=== PATIENT | female | born 1965 | race Caucasian/White ===

== ENCOUNTER → 2016-06-05 | Outpatient (CLI) | payer MEDICARE, MEDICAID ==
--- NOTE | 2016-06-05 15:28 | RADRPT ---
Vent Rate: 82 bpm RR Interval: 0 msec NC Interval: 154 msec QRS Duration: 96 msec QT Interval: 390 msec QTC Interval: 455 msec P-R-T [place]: 33 - 16 - -4 degrees Normal sinus rhythm Nonspecific T wave abnormality Abnormal ECG Electronically Signed By: Eddie Amaya [id number]
== END | disposition home or self-care (01) ==
LOC: EKG 13:50
PROVIDERS: ATTEND Internal Medicine
DX: R07.89 Other chest pain (principal)
CPT/HCPCS: 93005

== ENCOUNTER → 2018-11-11 | Outpatient (CLI) | payer MEDICARE, MEDICAID | END | disposition home or self-care (01) | LOC: RAD 11:30 | PROVIDERS: ATTEND Internal Medicine | DX: S42.402A Unspecified fracture of lower end of left humerus, initial encounter for closed fracture (principal); X58.XXXA Exposure to other specified factors, initial encounter ==